=== PATIENT | female | born 1970 | race Two or more races ===

== ENCOUNTER 2022-08-02 11:05 | Emergency (ER) | payer OTHER ==
[~2022-08-02] VITALS: Ht 167.6 cm; Wt 57.6 kg
== END 2022-08-02 13:10 | disposition home or self-care (01) ==
LOC: ER 11:05
DX: T78.3XXA Angioneurotic edema, initial encounter (principal)

== ENCOUNTER 2023-06-19 11:22 | Emergency (ER) | payer OTHER ==
[~2023-06-19] VITALS: Ht 167.6 cm; Wt 55.8 kg
== END 2023-06-19 13:37 | disposition home or self-care (01) ==
LOC: ER 11:23
DX: T78.49XA Other allergy, initial encounter (principal); T50.995A Adverse effect of other drugs, medicaments and biological substances, initial encounter; Y92.9 Unspecified place or not applicable; X58.XXXA Exposure to other specified factors, initial encounter